=== PATIENT | female | born 1995 | race Caucasian/White ===

== ENCOUNTER 2016-04-29 16:11 | Emergency (ER) | payer OTHER ==
[~2016-04-29 16:11] MED LIST: ACET-171 PO; DOXY100T2 PO; METR500T19 PO; NICO1PAT5 TOPICAL
[2016-04-29] MEDS ORDERED: ONDA4TAB9 PO (22:31)
[2016-04-29] MEDS ORDERED: SULF1TAB7 PO (22:31)
== END 2016-04-29 16:20 | disposition left against medical advice (07) ==
LOC: SED 16:11
DX: Z13.89 Encounter for screening for other disorder (principal); Z53.21 Procedure and treatment not carried out due to patient leaving prior to being seen by health care provider

== ENCOUNTER 2016-04-29 16:59 | Emergency (ER) | payer OTHER ==
[~2016-04-29] VITALS: Ht 162.6 cm; Wt 59.1 kg
[2016-04-29 17:07] VITALS: BP 120/75; PULSE 112; RESP 18; O2SAT 98
[2016-04-29 19:15] VITALS: BP 113/66; PULSE 103; RESP 16; O2SAT 98
[2016-04-29 19:22] LABS: Mean Corpuscular Hemoglobin 29.2 pg (27.0-35.0); Mean Corpuscular Volume 86.5 fL (81-100)
--- NOTE | 2016-04-29 19:52 | ED.REPORT ---
HPI-Preg Under 20 Weeks Date of Service Apr 29, 2016 ED Provider: Hannah Patel MD A 21 year old female A1 with a history of PID and and polysubstance abuse presents to the ED complaining of menorrhagia that began yesterday. Patient reports abdominal cramping, continuous vaginal bleeding, a large white pocket of discharge, lightheadedness and mild SOB unchanged from her baseline.Patient is unsure when her last menstrual cycle was and took 2 positive home tests. [facility]. Nursing Notes Stated Complaint: POSS MISCARRIAGE Chief Complaint: & Delivery Nursing Notes Reviewed: Yes Allergies: Coded Allergies: Penicillins (Verified Allergy, Intermediate, Anaphylaxis, 04/29/16) Scheduled Sulfamethoxazole/Trimeth 800-160 mg (Bactrim DS) 1 Each Tablet 1 TABLET PO BID Scheduled PRN Ondansetron ODT (Zofran ODT) 4 Mg Tablet 4 MG PO Q4H PRN PRN For Nausea General Time Seen by Provider: 19:53 Chief Complaint Vaginal bleeding Context: : Known 1st trim , ... (2), Abortions... (1) Hx Obtained From: Patient Arrived By: Walk-in Onset Occurred: Yesterday Symptom Duration: Since onset Progression Since Onset: Unchanged Location: : Abdomen lower Quality: Cramping Radiation: : None Severity: Current: Moderate Severity: Maximum: Moderate Associated with: Reports: Vaginal bleeding, Vaginal discharge Pertinent Negative: Pt denies other symptoms Recent Healthcare: No recent doctor visit, No recent hospitalization Risk-Preg Under 20 Weeks Ectopic Risk Stratification RF Statements: Risk factors reviewed Past Medical History Past Medical History IVDA Pelvic Inflammatory Disease Past Surgical History Pt was supposed to have tonsilectomy as a child but did not. Smoking History Current Every Day Smoker Social History Alcohol Use: Denies alcohol use Drug Use: Meth, Other Other Social History: Lives with parents Ambulatory Status Independent Review of Systems Constitutional: Denies: Chills, Fever Respiratory: Reports: Shortness of breath (unchanged from baseline ) Cardiovascular: Denies: Chest pain GI: Reports: Abdominal pain (abdominal cramping ), Denies: Nausea, Vomiting Female: Reports: (Unsure how many weeks ), Vaginal bleeding - abnl , Vaginal discharge Neurologic: Reports: Lightheaded, Denies: Change LOC Complete sys rev & neg: except as marked. Psychiatric: Reports: Stress Physical Exam Initial Vital Signs Vital Signs (First) Date Time Temp Pulse Resp B/P Pulse Ox O2 Delivery O2 Flow Rate FiO2 04/29/16 17:07 36.7 112 18 120/75 98 Room Air Initial VS: Reviewed Head / Eyes: Atraumatic, Normocephalic, PERRL Extremities: Vascular intact, Neuro intact, No swelling, No tenderness Skin: Warm, Dry, No cyanosis Neurologic: Alert, Oriented, Nonfocal Psychiatric: Mood/affect normal, Behavior normal, Normal thought content General/Constitutional: Awake, Alert Abdomen: Atraumatic, Soft, Non-tender Female Genitourinary: Compressor Assembler present, Atraumatic, Os closed (closed to fingertip ), No adnexal mass, No adnexal tenderness Vaginal Bleeding / Discharge: Positive: Bleeding moderate FEMALE : Moderate blood and tissue present in the vault Palpable uterus below the pelvic rim : Exam deferred Interpretation & Diagnostics Lab Results Interpretation Result Diagram: 04/29/16190904/29/161909 Test 04/29/16 19:10 04/29/16 20:02 White Blood Count 17.1th/mm3 (3.8-10.1) Red Blood Count 4.52mil/mm3 (3.90-5.20) Hemoglobin 13.2g/dL (12.0-15.6) Hematocrit 39.1% (35.0-46.0) Mean Corpuscular Volume 86.5fL (81-100) Mean Corpuscular Hemoglobin 29.2pg (27.0-35.0) Mean Corpuscular Hemoglobin Concent 33.8% (32.0-37.0) Red Cell Distribution Width 13.3% (12.3-15.4) Platelet Count 325bil/L (150-400) Sodium Level 138mEq/L (134-144) Potassium Level 3.9mEq/L (3.5-5.2) Chloride Level 101mEq/L (97-108) Carbon Dioxide Level 23mmol/L (18-29) Blood Urea Nitrogen 17mg/dL (6-20) Creatinine 0.51mg/dL (0.57-1.00) Estimat Glomerular Filtration Rate 218mL/min (>59) Glucose Level 68mg/dL (60-99) Calcium Level 9.1mg/dL (8.5-10.1) Total Bilirubin 0.2mg/dL (0.0-1.2) Aspartate Amino Transf (AST/SGOT) 20U/L (0-50) Alanine Aminotransferase (ALT/SGPT) 11U/L (0-32) Alkaline Phosphatase 90U/L (25-150) Total Protein 7.0g/dL (6.4-8.4) Albumin 4.1g/dL (3.4-5.0) HCG Beta Subunit 22061mDO/mL Hold Veloz Top Tube Received (Received) Urine Color Bloody (YELLOW) Urine Appearance Cloudy (CLEAR,HAZY) Urine pH 5.0 (5.0-8.0) Urine Specific [place] 1.030 (1.003-1.035) Urine Protein 100mg/dL (NEG,TRACE) Urine Glucose (UA) Negativemg/dL (NEGATIVE) Urine Ketones Negativemg/dL (NEGATIVE) Urine Occult Blood Large (NEGATIVE) Urine Nitrite Negative (NEGATIVE) Urine Bilirubin Negative (NEGATIVE) Urine Urobilinogen Normalmg/dL (NORMAL) Urine Leukocyte Esterase Trace (NEGATIVE) Urine RBC Packed/hpf (0-2) Urine WBC 6-10/hpf (0-5) Urine Epithelial Cells Few/hpf (NONE-MOD) Urine Crystals Oxalic acid crystals (NONE Urine Bacteria Moderate/hpf (NONE-FEW) Urine Hyaline Casts None/lpf (NONE) Urine Granular Casts None seen (NONE SEEN) Urine Waxy Casts None seen (NONE SEEN) Urine Red Blood Cell Casts None seen (NONE SEEN) Urine White Blood Cell Casts None seen (NONE SEEN) Urine Mucus None seen (None Seen) Urine Trichomonas None seen (NONE SEEN) Urine Yeast None (NONE SEEN) Urinalysis Comment None Urine Culture Reflexed Indicated US Focused OB IMPRESSION: In the clinical setting of presumed spontaneous , localized thickening of the endometrium up to 20 mm with internal vascular flow would be worrisome for retained products of conception. An intrauterine gestation is not visualized. Dictated by: Shahzad Delgado M.D. on 04/29/2016 at 21:48 Exam Performed by: Radiologist Re-Eval/Medical Decision Med Decision/Clinical Course 21-year-old here with vaginal bleeding. Differential diagnosis includes but is not limited to missed AB versus inevitable AB versus subchorionic hemorrhage versus retained products of conception. Patient has leukocytosis of 17,000, otherwise normal CBC. She has evidence of urinary tract infection on urinalysis. CMP is unremarkable. Her beta Quant is 10,000. Ultrasound shows possible retained products of conception, however, there is no IUP and no adnexal masses concerning for ectopic . I discussed the case with OB on-call Dr Spears who will see the patient first thing tomorrow morning in clinic. I have also given her her first dose of Bactrim for UTI. She has been given very strict return precautions and is amenable to discharge at this time with follow-up in OB clinic. Re-Evaluation/Progress : Time of Eval: 22:26 Patient Status: Condition improved Re-Evaluation/Progress Note: Patient is rechecked. She is informed of her US results and lab results. All of the patient's questions are adressed. She understands and agrees with the treatment plan to discharge with follow-up. Consultation : Referral / Consult Name: Marek Spears MD Call Returned at: 22:21 Radio Communication Coordinator: Will see patient, Will see in office, Agrees with eval, Agrees with plan Note: IT NETWORK ENGINEER: Does not recommend antibiotics; will see pt Counseled Regarding: Diagnosis, Lab results, Need for follow-up, When/why to return to ED Discharge & Departure Primary Impression: Threatened miscarriage Additional Impressions: Retained products of conception Urinary tract infection Urinary tract infection type: site unspecified Hematuria presence: with hematuria Qualified Code: N39.0 - Urinary tract infection, site not specified Disposition: Home Discharge Condition All VS Reviewed: Yes Condition: Improved Patient Instructions: Threatened Miscarriage (ED), Urinary Tract Infection in Women (ED) Additional Instructions: Thank you for trusting us with your care this evening. Your emergency department results including pelvic examination, lab work and ultrasound results are indicative of a threatened miscarriage. Your lab results also revealed urinary tract infection. Please take Bactrim as prescribed. Please see the referred IT NETWORK ENGINEER (Dr. Spears) for follow-up appointment first thing tomorrow morning. Please return to the emergency department for any new or worsening conditions including any lightheadedness, uncontrollable bleeding, worsening pain, or fever. Referrals: Angela Saleem MD (PCP) Marek Spears MD Scribe Attestation Portions of this note were transcribed by Camilo De Paz. IDr. Patel personally performed the history, physical exam and medical decision-making; I reviewed and confirmed the accuracy of the information in the transcribed note. Signed by: Rekha Knight, 04/29/16 1313. copies to: Marek Spears MD; Angela Saleem MD, Rebecca A MD Apr 29, 2016 19:52 CAMILO DE PAZ Apr 29, 2016 19:57
[2016-04-29 20:24] LABS: APPEARANCE,URINE CLOUDY (CLEAR,HAZY); COLOR,URINE BLOODY (YELLOW); OCCULT BLOOD,URINE LARGE (NEGATIVE); UROBILINOGEN,URINE NORMAL (NORMAL)
[2016-04-29] MEDS ORDERED: Trimethoprim-Sulfa 160 mg-800 mg Tablet PO ONE (21:20)
--- NOTE | 2016-04-29 21:54 | DRSVH ---
PROCEDURE: US PELVIC SONOGRAM + TRANSVAGINAL SONOGRAM INDICATIONS: 21 year-old female with heavy vaginal bleeding, beta hCG level of 10,772. TECHNIQUE: Real-time scanning was performed of the pelvic organs, with image documentation. Additional endovagi nal scanning was necessary due to incomplete visualization of the adnexal and endometrial structures by transabdominal scanning. COMPARISON: [facility], US, US PELVIC+TRANSVAG, 09/22/2015, 12:29. FINDINGS: Transabdominal scanning: Limited scanning through the kidneys shows no hydronephrosis. No pathologi c free abdominal or pelvic fluid. Endovaginal scanning: Uterus: Uterus is normal in size at 8.8 x 3.5 x 5.2 cm. An intrauterine is not visualized . The endometrium measures 10.2 mm in combined thickness, with localized thickening of the 20 mm. Co lenin Doppler interrogation demonstrates patchy vascular flow within the endometrium. Ovaries: The both ovaries appear normal in size and morphology, measuring 3.9 x 1.8 x 1.6 cm on the r ight, and 2.9 x 1.9 x 1.8 cm on the left. IMPRESSION: In the clinical setting of presumed spontaneous , localized thickening of the end ometrium up to 20 mm with internal vascular flow would be worrisome for retained products of concepti on. An intrauterine gestation is not visualized. Dictated by: Shahzad Delgado M.D. on 04/29/2016 at 21:48 Approved by: Shahzad Delgado M.D. on 04/29/2016 at 21:53
[2016-04-29 22:22] VITALS: BP 107/67; PULSE 92; RESP 16; O2SAT 99
[2016-04-29] MEDS ORDERED: ONDA4TAB9 PO (22:31)
[2016-04-29] MEDS ORDERED: SULF1TAB7 PO (22:31)
[2016-04-29 22:47] VITALS: BP 107/67; PULSE 92; RESP 16; O2SAT 99
== END 2016-04-29 22:47 | disposition home or self-care (01) ==
LOC: SED 16:59
DX: O20.0 Threatened abortion (principal); O23.41 Unspecified infection of urinary tract in pregnancy, first trimester; B96.20 Unspecified Escherichia coli [E. coli] as the cause of diseases classified elsewhere; Z3A.00 Weeks of gestation of pregnancy not specified; Z87.891 Personal history of nicotine dependence; Z88.0 Allergy status to penicillin

== ENCOUNTER 2016-05-30 17:47 | Emergency (ER) | payer OTHER ==
[~2016-05-30] VITALS: Ht 162.6 cm; Wt 59.1 kg
[~2016-05-30 17:47] MED LIST changes: -ACET-171 PO; -DOXY100T2 PO; -METR500T19 PO; -NICO1PAT5 TOPICAL; +ONDA4TAB9 PO; +SULF1TAB7 PO
[2016-05-30 18:02] VITALS: BP 123/86; PULSE 87; RESP 16; O2SAT 100
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
--- NOTE | 2016-05-30 21:47 | DRSVH ---
PROCEDURE: X-RAY FINGERS, TWO VIEWS INDICATIONS: index finger TECHNIQUE: AP hand, 2 views of the second finger(s) acquired. COMPARISON: None. FINDINGS: Bones: No fractures or dislocations. There is flexion deformity of the second finger at the second distal interphalangeal joint. Mild cortical irregularity is noted in the volar aspect of the second d istal phalangeal base. Soft tissues: No suspicious soft tissue calcifications. There is soft tissue swelling in the distal second finger. IMPRESSION: 1. Mild cortical irregularity at the volar aspect of the second distal phalangeal base. Recommend cli nical correlation for osteomyelitis. 2. Flexion deformity of the second digit at the distal interphalangeal joint. 3. Soft tissue swelling. Dictated by: Katrina Noe M.D. on 05/30/2016 at 21:41 Approved by: Katrina Noe M.D. on 05/30/2016 at 21:45
[2016-05-30 22:19] VITALS: BP 112/78; PULSE 86; RESP 16; O2SAT 99
== END 2016-05-30 22:19 | disposition home or self-care (01) ==
LOC: SED 17:47
DX: G90.511 Complex regional pain syndrome I of right upper limb (principal); S61.210A Laceration without foreign body of right index finger without damage to nail, initial encounter; W26.0XXA Contact with knife, initial encounter; Y92.9 Unspecified place or not applicable; Y93.89 Activity, other specified; Y99.8 Other external cause status; F19.20 Other psychoactive substance dependence, uncomplicated; F17.200 Nicotine dependence, unspecified, uncomplicated; Z98.890 Other specified postprocedural states; Z86.14 Personal history of Methicillin resistant Staphylococcus aureus infection; Z87.2 Personal history of diseases of the skin and subcutaneous tissue; Z88.0 Allergy status to penicillin